=== PATIENT | male | born 1940 | race Caucasian/White ===

== ENCOUNTER → 2019-06-22 | Outpatient (CLI) | payer OTHER ==
[~2019-06-22] MED LIST: ACTOS 45 MG45 M2 PO; ASA81BEC PO; BYSTOLIC10 MG PO; CELEXA 20 MG TA20 MG PO; FLOMAX0.4 MG PO; GLIPIZIDE 10 MG10 MG PO; LIPITOR 20 MG T20 M1 PO; LOSARTAN-HCTZ1 EAC1 PO; VITAMIN D310 MC1 PO
== END ==
LOC: SJCVCIMAG
DX: I07.1 Rheumatic tricuspid insufficiency (principal); I11.9 Hypertensive heart disease without heart failure; E11.9 Type 2 diabetes mellitus without complications; E78.00 Pure hypercholesterolemia, unspecified; E55.9 Vitamin D deficiency, unspecified; N40.0 Benign prostatic hyperplasia without lower urinary tract symptoms; Z79.4 Long term (current) use of insulin; Z79.899 Other long term (current) drug therapy; Z87.891 Personal history of nicotine dependence

== ENCOUNTER → 2019-06-29 | Outpatient (CLI) | payer OTHER ==
[~2019-06-29] VITALS: Ht 162.6 cm; Wt 91.6 kg
[2019-06-29 07:17] VITALS: BP 197/85
[2019-06-29 07:26] LABS: HEMATOCRIT 37.7 % (42.0-52.0); HEMOGLOBIN 12.2 gm/dL (14.0-18.0); MCH 28.2 pg (26.0-34.0); MCHC 32.4 g/dL (28.0-37.0); RBC 4.33 mil/uL (4.50-6.00); RDW 14.7 % (10.5-14.5); WBC 5.1 thou/uL (4.0-11.0)
[2019-06-29 07:31] LABS: CALCIUM 9.1 mg/dL (8.5-10.1); CREATININE 1.7 mg/dL (0.7-1.3); POTASSIUM 4.6 mmol/L (3.5-5.1)
--- NOTE | 2019-06-29 18:47 | CATHLAB ---
[facility] [place] [address] INVASIVE PROCEDURE REPORT Name: DANIA HAMILTON Room #: REG ROGER StephensMasha#: [id number] Admission: 06/29/19 Attend Phys: Mal Singh MD, Discharge: Date of : 44 Report #: [id number] THIS REPORT FOR: cc: Angelo Robledo MD, Logan F. MD Mancuso, Gerald M. MD [facility] ~ APPROVED REPORT Study performed: 06/29/2019 07:28:22 Patient Details Patient Status: Out-Patient Room #: The patient is a 78 year-old male Event Personnel Mal Singh Lockstitch Pocket Setter, Jacinda Harris RN RN, Lucia Márquez RTR John Blandon David Monitor Procedures Performed Right and Left Heart Cath w/or w/o Coronarie [id number] [facility] Renal Bilateral Peripheral Angiography [id number] CVRENALBIL Indication Chest pain Procedure Narrative The Right Groin^ was infiltrated with 1% Lidocaine subcutaneous anesthesia. A PINNACLE 6FR Sheath #[id number] sheath was inserted into the RFA^. Coronary angiography was performed using coronary diagnostic catheters. The right coronary system was accessed and visualized with a 6FR 3DRC #[id number] catheter. The left coronary system was accessed and visualized with a JL4 catheter. The left ventricle was accessed and visualized with a PIGTAIL catheter. Left ventricular/Aortic Valve gradient assessed via catheter pullback. Left ventriculogram was performed in 30 degree projection. Closure device was deployed with a 6 Fr MYNX CONTROL 6F/7F L#[id number]. The patient tolerated the procedure well and there were no complications associated with the procedure. A hematoma occurred. Intraoperative Conscious Sedation Sedation start time: 8.28 Case end Time: 9.04 Fentanyl 100 mcg Versed 2 mg [facility] [place] [address] INVASIVE PROCEDURE REPORT Name: DANIA HAMILTON Room #: [facility] Cris#: [id number] Admission: 06/29/19 Attend Phys: aMl Singh, Discharge: Date of : 44 Report #: [id number] Fluoro Time: 5.28 minutes Dose: DAP 8867.00 cGycm2 546 mGy Contrast Type and Amount: Visipaque 98 ml Hemodynamics The right atrial mean pressure is 20 mmHg. The right ventricular pressure is 51/13 mmHg. The pulmonary artery pressure is 50/11 mmHg with a mean of 27 mmHg. The mean pulmonary capillary wedge pressure is 20 mmHg. The aortic pressure is 168/61 mmHg with a mean of 90 mmHg. The left ventricular pressure is 170/12 mmHg with a mean of mmHg. The left ventricular end diastolic pressure is 30 mmHg. There was no gradient across the aortic valve upon pullback. Pullback from the left ventricle to the aorta revealed no gradient across the aortic valve. PCI Technique Lesion Percutaneous coronary intervention was performed on the Unspecified. Conclusion #1 successful right heart catheterization with thermodilution by cardiac output. See above hemodynamics. #2 normal left ventricular size and systolic function EF 55%. #3 left main mild irregularities giving rise to LAD and circumflex #4 LAD with eccentric 30% lesion and mild diffuse disease around the apex. Mild proximal calcification #5 circumflex OM nondominant. The second OM is a high-grade ostial disease would not be very amenable to intervention. 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 The entire PDA MICHELE system is collaterally filled via the left system briskly. Recommendations and plan: Continue aggressive risk factor modification. Dr. Bond will intervene into ostial high-grade right renal artery stenosis. See his dictation. <ELECTRONICALLY SIGNED> By: Mal Singh MD, FACC 06/29/191845 45 45 Mal Singh MD, FACC /INF
== END | disposition home or self-care (01) ==
LOC: CATH 06:23
PROVIDERS: Internal Medicine
DX: R07.9 Chest pain, unspecified (principal); I70.1 Atherosclerosis of renal artery; I25.10 Atherosclerotic heart disease of native coronary artery without angina pectoris; I15.0 Renovascular hypertension; N28.9 Disorder of kidney and ureter, unspecified; I10 Essential (primary) hypertension; E11.9 Type 2 diabetes mellitus without complications; E78.00 Pure hypercholesterolemia, unspecified; F41.9 Anxiety disorder, unspecified; N40.0 Benign prostatic hyperplasia without lower urinary tract symptoms; F17.220 Nicotine dependence, chewing tobacco, uncomplicated; Z98.890 Other specified postprocedural states; Z79.899 Other long term (current) drug therapy; Z79.82 Long term (current) use of aspirin

== ENCOUNTER → 2019-10-07 | Outpatient (CLI) | payer OTHER | LOC: SJCVCIMAG 08:23 | DX: I65.23 Occlusion and stenosis of bilateral carotid arteries (principal); I25.10 Atherosclerotic heart disease of native coronary artery without angina pectoris; R00.1 Bradycardia, unspecified; I10 Essential (primary) hypertension; E78.00 Pure hypercholesterolemia, unspecified; I70.1 Atherosclerosis of renal artery; E11.9 Type 2 diabetes mellitus without complications; Z79.4 Long term (current) use of insulin; I63.9 Cerebral infarction, unspecified; Z79.899 Other long term (current) drug therapy; Z87.891 Personal history of nicotine dependence ==

== ENCOUNTER → 2020-04-25 | Outpatient (CLI) | payer OTHER | LOC: SJCVCIMAG 08:43 | PROVIDERS: ATTEND Internal Medicine Cardiovascular Disease | DX: I10 Essential (primary) hypertension (principal); I70.1 Atherosclerosis of renal artery; I77.9 Disorder of arteries and arterioles, unspecified; I25.10 Atherosclerotic heart disease of native coronary artery without angina pectoris; I63.9 Cerebral infarction, unspecified; E78.00 Pure hypercholesterolemia, unspecified; E11.9 Type 2 diabetes mellitus without complications; Z79.82 Long term (current) use of aspirin; Z95.828 Presence of other vascular implants and grafts; Z79.4 Long term (current) use of insulin; Z79.899 Other long term (current) drug therapy; Z87.891 Personal history of nicotine dependence; Z86.73 Personal history of transient ischemic attack (TIA), and cerebral infarction without residual deficits ==